=== PATIENT | male | born 1960 | race Caucasian/White ===

== ENCOUNTER 2018-12-08 08:29 | Emergency (ER) | payer OTHER ==
[~2018-12-08] VITALS: Ht 188 cm; Wt 79.8 kg
--- NOTE | 2018-12-08 08:35 | NUR ---
LOCO SPEARS 102 "Missed a step in construction site-fell approx 2-3ft Left Shoulder injury- swollen/bruised" Patient a/ox4, breathing even and unlabored, no sob noted, attached to the night monitor, waiting for MD merino.
[2018-12-08] MEDS ORDERED: HYDROMORPHONE 1 MG/1 ML DISP.SYRIN ONE ×4 (08:54→11:34)
[2018-12-08] MEDS ORDERED: ONDANSETRON HCL/PF 4 MG/2 ML VIAL ONE ×2 (08:54→08:57)
[2018-12-08] MEDS ORDERED: ONDANSETRON HCL/PF 4 MG/2 ML VIAL IV ONE (09:00)
[2018-12-08] MEDS ORDERED: HYDROMORPHONE INJ 0.5 MG/0.5 ML SYRINGE IV ONE (09:00)
--- NOTE | 2018-12-08 09:00 | NUR ---
RADIOLOGY AT BEDSIDE FOR L SHOULDER XRAY.
[2018-12-08] MEDS ORDERED: HYDROMORPHONE 1 MG/1 ML DISP.SYRIN IV ONE ×2 (10:00→11:30)
--- NOTE | 2018-12-08 10:31 | NUR ---
CALLED [facility] [phone] SECOND CALL
--- NOTE | 2018-12-08 12:31 | NUR ---
PATIENT GIVEN REFERRAL TO DR. MEEK, [facility]. ADDRESS AND PHONE NUMBER PROVIDED FOR A FOLLOW UP APPOINTMENT, LEFT ARM PLACED ON A SLING. PATIENT C/O PAIN DURING MOVEMENT. FRIEND AT BEDSIDE, ABLE TO DRIVE THE PATIENT HOME. PIV REMOVED, RX PROVIDED. Patient discharged to home in stable condition. Written and verbal after care instructions given. Patient verbalizes understanding of instruction.
[2018-12-08 12:33] VITALS: BP 154/89
== END 2018-12-08 12:34 | disposition home or self-care (01) ==
LOC: ER 08:31
DX: S42.92XA Fracture of left shoulder girdle, part unspecified, initial encounter for closed fracture (principal); W10.9XXA Fall (on) (from) unspecified stairs and steps, initial encounter; Y93.89 Activity, other specified; Y92.89 Other specified places as the place of occurrence of the external cause; Y99.8 Other external cause status
CPT/HCPCS: 73030; 96374; 96375; 96376; 99283; J1170 ×3; J2405